=== PATIENT | female | born 1980 | race Two or more races ===

== ENCOUNTER → 2019-05-30 | Outpatient (CLI) | payer OTHER | END | disposition home or self-care (01) | LOC: PRENATAL 13:00 | DX: O35.3XX1 Maternal care for (suspected) damage to fetus from viral disease in mother, fetus 1 (principal); O26.852 Spotting complicating pregnancy, second trimester; O09.522 Supervision of elderly multigravida, second trimester; O36.1920 Maternal care for other isoimmunization, second trimester, not applicable or unspecified ==